=== PATIENT | female | born 2000 | race Caucasian/White ===

== ENCOUNTER 2020-04-29 00:05 | Emergency (ER) | payer MEDICARE, MEDICAID ==
[~2020-04-29] VITALS: Ht 170.2 cm; Wt 68.2 kg
[~2020-04-29 00:05] MED LIST: ABILIFY5 MG PO; ATARAX 10MG10 MG/TAB PO; ZOLOFT 100MG100 MG PO
[2020-04-29 00:42] LABS: COLLECTION METHOD CLEAN CATCH
[2020-04-29 00:59] LABS: MUCOUS Present /lpf; PH 7 (5-8); SQUAMOUS EPITHELIAL 0-2 /hpf; TRICYCLIC ANTIDEPRESS URINE NEGATIVE; URINE APPEARANCE Hazy; URINE BACTERIA None Seen /hpf; URINE BILIRUBIN Negative (NEGATIVE); URINE BLOOD Negative (NEGATIVE); URINE COLOR Yellow; URINE GLUCOSE Negative (NEGATIVE); URINE KETONE Negative (NEGATIVE); URINE LEUKOCYTE ESTERASE Negative (NEGATIVE); URINE NITRATE Negative (NEGATIVE); URINE PROTEIN(semi-quant) 1+ (NEGATIVE); URINE RBC 0-2 /hpf; URINE UROBILINOGEN >=4.0 mg/dL (NEGATIVE)
[2020-04-29 01:00] LABS: BASO # 0.1 (0.0-0.2); BASO % 0.5 % (0.0-2.0); EOS # 0.2 (0.0-0.7); GRAN # 7.5 (1.4-6.5); GRAN % 61.9 % (42.2-75.2); HEMATOCRIT 43.4 % (35.0-45.0); HEMOGLOBIN 14.5 g/dl (12.0-15.0); LYMPH # 3.3 (1.2-3.4); LYMPH % 27.3 % (20.0-51.0); MEAN CELL VOLUME 88 fl (80.0-95.0); MEAN CORPUSCULAR HEMOGLOBIN 29 pg (26.0-32.0); MEAN CORPUSCULAR HGB CONC 33 g/dl (33.0-37.0); MEAN PLATELET VOLUME 10.7 fl (7.4-10.4); MONO % 8.1 % (1.7-9.3); PLATELET COUNT 288 K/mm3 (130-400); RED BLOOD COUNT 4.96 M/mm3 (4.10-5.30)
[2020-04-29 01:11] LABS: ALANINE AMINOTRANSFERASE 12 U/L (4-34); ALBUMIN 4.7 gm/dL (3.5-5.0); ALKALINE PHOSPHATASE 64 U/L (50-136); ANION GAP 10 mmol/L (7-16); AST,SGOT 23 U/L (15-37); BILIRUBIN,TOTAL 0.7 mg/dL (0.0-1.0); BLOOD UREA NITROGEN 6 mg/dL (7-17); CALCIUM 9.7 mg/dL (8.4-10.2); CARBON DIOXIDE 23 mmol/L (22-30); CHLORIDE 107 mmol/L (98-107); CREATININE, serum 0.55 (0.52-1.25); GLUCOSE 109 mg/dL (74-106); POTASSIUM 3.8 mmol/L (3.4-5.0); SODIUM 140 mmol/L (137-145); TOTAL PROTEIN 8.1 gm/dL (6.4-8.2)
[2020-04-29 01:13] LABS: ACETAMINOPHEN < 10 ug/mL (10-30); ALCOHOL(ethanol),MEDICAL < 10 mg/dL; SALICYLATE < 1.0 mg/dL
[2020-04-29 07:15] VITALS: BP 130/78; PULSE 65; TEMP 98.3
== END 2020-04-29 07:15 ==
LOC: COL.ER 00:05
PROVIDERS: Family Medicine
DX: F32.9 Major depressive disorder, single episode, unspecified (principal); R45.851 Suicidal ideations; Z88.8 Allergy status to other drugs, medicaments and biological substances